=== PATIENT | female | born 1990 | race Caucasian/White ===

== ENCOUNTER 2016-11-23 19:39 | Emergency (ER) | payer OTHER ==
--- NOTE | 2016-11-23 19:49 | PDOC ---
History of Present Illness <Kwadwo Veliz - Last Filed: 11/23/16 21:12> - General History Source: Patient Exam Limitations: No Limitations - History of Present Illness Initial Comments: 11/23/16 20:28 This pt is a 26 yo F () LMP September 11 with no significant past medical history who presents with her complaining of vaginal bleeding. She states her symptoms began today. Vaginal bleeding is associated with lower abdominal crampy pain, which is intermittent, located through out the lower abdomen, worse on the left side, rated 5/10, no exacerbating or alleviating factors. Pain is not too bad now. She is currently NOT saturating any pads. She has not noted any clots or tissue. She has not had symptoms like this in the past. Pain is NOT associated with nausea and vomiting. She denies dysuria ROS: GENERAL/CONSTITUTIONAL: No: fever, chills, weakness, loss of appetite. HEAD, EYES, EARS, NOSE AND THROAT: No: change in vision, ear pain, discharge, sore throat, throat swelling. CARDIOVASCULAR: No: chest pain, lightheadedness, palpitations, syncope RESPIRATORY: No: cough, shortness of breath, wheezing, hemoptysis, stridor. GASTROINTESTINAL: (+) abdominal pain No: nausea, vomiting, diarrhea GENITOURINARY: (+) Vaginal bleeding No: dysuria, hematuria, frequency, urgency, flank pain. MUSCULOSKELETAL: No: back pain, neck pain, joint pain, muscle swelling or pain SKIN: No: lesions, pallor, rash or easy bruising. NEUROLOGIC: No: headache, vertigo, paresthesias, weakness ENDOCRINE: No: unexplained weight gain or loss HEMATOLOGIC/LYMPHATIC: No: anemia, easy bleeding, swelling nodes. PHYSICAL EXAM GENERAL: The patient is in no acute distress. HEAD: Normal with no signs of trauma. EYES: PERRLA, EOMI, sclera anicteric, conjunctiva clear. ENT: Ears normal, nares patent, oropharynx clear without exudates. Moist mucous membranes. NECK: Normal range of motion, supple without lymphadenopathy, JVD, or masses. LUNGS: Breath sounds equal, clear to auscultation bilaterally. No wheezes, and no crackles. HEART:Regular rate and rhythm, normal S1 and S2 without murmur, rub or gallop. ABDOMEN: (+) minimally tender to palpation, Soft, normoactive bowel sounds. No guarding, no rebound. EXTREMITIES: Normal range of motion, no edema. No clubbing or cyanosis. No erythema, or tenderness. NEUROLOGICAL: Cranial nerves II through XII grossly intact. Normal speech. No focal neurological deficits. MUSCULOSKELETAL: Back non-tender to palpation, no CVA tenderness SKIN: Warm, Dry, normal turgor, no rashes or lesions noted. 11/23/16 21:33 <Nay Marie - Last Filed: 11/24/16 20:17> - General Chief Complaint: Vaginal Bleeding Stated Complaint: 10 WEEKS PREG, VAGINAL BLEEDING Time Seen by Provider: 11/23/16 19:49 Past History <Kwadwo Veliz - Last Filed: 11/23/16 21:12> - Past Medical History Other medical history: denies - Immunization History Immunization Up to Date: Yes - Psycho/Social/Smoking Cessation Hx Suicidal Ideation: No Smoking History: Never smoked Have you smoked in the past 12 months: No Information on smoking cessation initiated: No Hx Alcohol Use: No Drug/Substance Use Hx: No <Nay Marie - Last Filed: 11/24/16 20:17> - Past Medical History Allergies/Adverse Reactions: Allergies Allergy/AdvReac Type Severity Reaction Status Date / Time No Known Allergies Allergy Verified 11/23/16 19:41 Home Medications: Ambulatory Orders NK [No Known Home Medication] 11/23/16 *Physical Exam - Vital Signs Last Vital Signs Temp Pulse Resp BP Pulse Ox 98.3 F 67 16 113/57 100 11/23/16 19:42 11/23/16 19:42 11/23/16 19:42 11/23/16 19:42 11/23/16 19:42 <wKadwo Veliz - Last Filed: 11/23/16 21:12> - Vital Signs Last Vital Signs Temp Pulse Resp BP Pulse Ox 98.3 F 67 16 113/57 100 11/23/16 19:42 11/23/16 19:42 11/23/16 19:42 11/23/16 19:42 11/23/16 19:42 <Nay Marie - Last Filed: 11/24/16 20:17> ED Treatment Course - LABORATORY CBC & Chemistry Diagram: 11/23/16 20:06 11/23/16 20:06 <Kwadwo Veliz - Last Filed: 11/23/16 21:12> - LABORATORY CBC & Chemistry Diagram: 11/23/16 20:06 11/23/16 20:06 <Nay Marie - Last Filed: 11/24/16 20:17> Medical Decision Making - Medical Decision Making 11/23/16 19:49 Vag bleeding early Will do labs, US 11/23/16 21:48 11/23/16 21:49 Laboratory Tests 11/23/16 11/23/16 11/23/16 20:06 20:06 20:11 WBC 9.9 Hgb 13.2 Hct 39.1 Plt Count 224 BUN 8 Creatinine 0.4 L Beta HCG, Quant 69532.7 Urine Blood 3+ H Urine Nitrite Negative Ur Leukocyte Esterase 1+ H Urine RBC 9 Urine WBC 2 11/23/16 22:28 Laboratory Tests 11/23/16 20:06 Blood Type A POSITIVE 11/24/16 00:03 U/S demonstrates gestational sac in lower uterine segment, no FHR visualized either due to technical difficulty vs. miscarriage Upon re assessment (+) increased bleeding noted (+) clot noted I have had a long conversation with this patient and her re: likelihood of miscarriage I have asked them to return to the Er in 2 days for repeat BHCG and US Return to the Er sooner for heavy vaginal bleeding, saturating 2 pads/hour x 2 hours Clinical Impression: Likely Miscarriage vs. Threatened AB <Nay Marie - Last Filed: 11/24/16 20:17> *DC/Admit/Observation/Transfer - Attestations Scribe Attestion: 11/23/16 19:51 Documentation prepared by Kwadwo Veliz, acting as medical lab director for Nay Marie MD. <Kwadwo Veliz - Last Filed: 11/23/16 21:12> - Discharge Dispostion Admit: No <Nay Marie - Last Filed: 11/24/16 20:17> Diagnosis at time of Disposition: Threatened - Discharge Dispostion Disposition: HOME Condition at time of disposition: Stable - Patient Instructions Printed Discharge Instructions: DI for Threatened Additional Instructions: Thank you for coming in to the ER today Please monitor yourself for heavy vaginal bleeding - saturating 2 pads/hour x 2 hours, lightheadedness, weakness Please follow up with your director of sales marketing as already scheduled
[2016-11-23 19:56] VITALS: PULSE 67; BMI 27.0
[2016-11-23 20:19] LABS: BASOPHIL 1.3 % (0-2.0); EOSINOPHIL 2.2 % (0-4.5); MCH 28.8 pg (25.7-33.7); MCHC 33.6 g/dl (32.0-36.0); MEAN CELL VOLUME 85.7 fl (80-96); MEAN PLT VOLUME 8.2 fl (7.5-11.1); NEUTROPHILS 63.1 % (42.8-82.8); PLATELET COUNT 224 K/MM3 (134-434); RDW 12.7 % (11.6-15.6); WHITE BLOOD COUNT 9.9 K/mm3 (4.0-10.0)
[2016-11-23 20:22] LABS: URINE APPEARANCE CLEAR; URINE BILIRUBIN NEGATIVE (NEGATIVE); URINE COLOR COLORLESS; URINE GLUCOSE (UA) NEGATIVE (NEGATIVE); URINE KETONE NEGATIVE (NEGATIVE); URINE NITRITE NEGATIVE (NEGATIVE); URINE PROTEIN NEGATIVE (NEGATIVE); URINE UROBILINOGEN NEGATIVE mg/dL (0.2-1.0)
[2016-11-23 20:33] LABS: URINE BLOOD 3+ (NEGATIVE); URINE LEUK ESTERASE 1+ (NEGATIVE)
[2016-11-23 20:36] LABS: ANION GAP 9 (8-16); CALCIUM 8.9 mg/dL (8.5-10.1); CO2 25 mmol/L (21-32); CREATININE 0.4 mg/dL (0.55-1.02); GLUCOSE,RANDOM 89 mg/dL (74-106); SGOT/AST 12 U/L (15-37); SGPT/ALT 19 U/L (12-78)
[2016-11-23 20:38] LABS: URINE BACTERIA RARE /hpf (NONE SEEN); URINE RBC 9 /hpf (0-3); URINE WBC 2 /hpf (3-5)
[2016-11-23 20:53] LABS: ALK PHOS 54 U/L (45-117); BILIRUBIN,TOTAL 0.4 mg/dL (0.2-1.0); TOT PROT 7.3 g/dl (6.4-8.2)
[2016-11-24 00:22] VITALS: BP 110/66; TEMP 98.2
--- NOTE | 2016-11-26 14:04 | PDOC ---
Patient Follow-up (Call Back) - Post ED Follow - Up Condition at time of discharge: Stable Disposition at time of original discharge: HOME Reason for Call Back: Abnwl. Microbiology (11/23/16 urine C & S + for > than 100 ,000 strep Bovis sensitive to PCN called pt left message [phone] to call back, called back pt to take amoxicillin 875mg bid for 7 days and to follow up with her MD for repeat urine testing at end treatment. pt. did not come back for repeat BHCG and US. Pt. told to come in today for repeat BHCG and ultrasound.)
== END 2016-11-24 00:22 | disposition home or self-care (01) ==
LOC: JER 19:39
DX: O26.891 Other specified pregnancy related conditions, first trimester (principal); O20.0 Threatened abortion; Z3A.10 10 weeks gestation of pregnancy
CPT/HCPCS: 36415; 76817-TC; 80053; 81003; 81015; 84702; 85025; 86850; 86900; 86901; 87086; 87186; 99283-25

== ENCOUNTER 2016-11-26 21:31 | Emergency (ER) | payer OTHER ==
[2016-11-26 21:38] VITALS: BP 96/52; PULSE 86; TEMP 98.1; BMI 27.3
--- NOTE | 2016-11-26 22:44 | PDOC ---
History of Present Illness - History of Present Illness Initial Comments: 11/26/16 22:44 Patient is a 26 year old female with no significant medical who is returning to the ED for follow up repeat beta hCG. Patient was seen in the ED three days ago on 11/23 when she presented at 6 weeks with vaginal bleeding and pelvic cramping at that time. The patient received an US that demonstrated products of conception in the lower uterine segment with no heart tone; it was read as an in progress. Her beta hCG was 11 thousand at the time. She was told to return to the ED today for repeat beta hCG. Today the patient complains of very mild pelvic cramping, light vaginal bleeding, and lower back pain; she states that her pain has improved since her last visit. Denies fever, chills, nausea, vomiting, diarrhea or urinary complaints. ; LNMP: 09/11/16 <Shalini Ballard - Last Filed: 11/26/16 22:44> <Nicole Storey - Last Filed: 11/27/16 00:16> - General Chief Complaint: Revisit, Lab Variance Stated Complaint: REVISIT Time Seen by Provider: 11/26/16 21:54 Past History <Shalini Ballard - Last Filed: 11/26/16 22:44> - Past Medical History Other medical history: denies - Immunization History Immunization Up to Date: Yes - Psycho/Social/Smoking Cessation Hx Suicidal Ideation: No Smoking History: Never smoked Have you smoked in the past 12 months: No Hx Alcohol Use: No Drug/Substance Use Hx: No <Nicole Storey - Last Filed: 11/27/16 00:16> - Past Medical History Allergies/Adverse Reactions: Allergies Allergy/AdvReac Type Severity Reaction Status Date / Time No Known Allergies Allergy Verified 11/26/16 21:37 Home Medications: Ambulatory Orders NK [No Known Home Medication] 11/26/16 Review of Systems - Review of Systems Comments:: 11/26/16 22:45 CONSTITUTIONAL: Absent: fever, no chills, no fatigue EYES: Absent: visual changes ENT: Absent: ear pain, no sore throat CARDIOVASCULAR: Absent: chest pain, no palpitations RESPIRATORY: Absent: cough, no SOB GI: Present: mild pelvic cramping Absent: no nausea, no vomiting, no constipation, no diarrhea GENITOURINARY: Present: light vaginal bleeding Absent: dysuria, no frequency, no hematuria MUSKULOSKELETAL: Present: mild lower back pain Absent: no arthralgia, no myalgia SKIN: Absent: rash NEURO: Absent: headache <Shalini Ballard - Last Filed: 11/26/16 22:44> *Physical Exam - Vital Signs Last Vital Signs Temp Pulse Resp BP Pulse Ox 98.1 F 86 18 96/52 99 11/26/16 21:35 11/26/16 21:35 11/26/16 21:35 11/26/16 21:35 11/26/16 21:35 - Physical Exam Comments: 11/26/16 22:47 GENERAL: Well-appearing, well-nourished. No apparent distress. HEENT: Normocephalic, atraumatic. PERRL, EOM intact. CARDIOVASCULAR: Normal S1, S2. Regular rate and rhythm. PULMONARY: Clear to auscultation bilaterally. ABDOMEN: Soft, non-distended, non-tender. EXTREMITIES: Normal ROM in all four extremities. No gross deformities. BACK: No CVA tenderness. SKIN: Warm, dry. No rash NEUROLOGICAL: No focal neurological deficits. <Shalini Ballard - Last Filed: 11/26/16 22:44> - Vital Signs Last Vital Signs Temp Pulse Resp BP Pulse Ox 98.1 F 86 18 96/52 99 11/26/16 21:35 11/26/16 21:35 11/26/16 21:35 11/26/16 21:35 11/26/16 21:35 <Nicole Storey - Last Filed: 11/27/16 00:16> Medical Decision Making - Medical Decision Making 11/26/16 23:55 26-year-old female returns for repeat beta-hCG. She reports being and having a transvaginal ultrasound on November 23 that showed an in progress. Her bhcg was 11,000. Past medical history is G1, P0. She denies any significant past medical history or surgeries. She denies any significant pain or cramping at this time and states she doesn' t need any Tylenol 11/27/16 00:15 bhcg fell to [id number] plan see material assistant this month,has an appt on 12/09/16 <Nicole Storey - Last Filed: 11/27/16 00:16> *DC/Admit/Observation/Transfer - Attestations Scribe Attestion: 11/26/16 22:48 Documentation prepared by Shalini Ballard, acting as rn medical surgical for Nicole Storey MD. <Shalini Ballard - Last Filed: 11/26/16 22:44> <Nicole Storey - Last Filed: 11/27/16 00:16> Diagnosis at time of Disposition: Miscarriage - Discharge Dispostion Disposition: HOME Condition at time of disposition: Stable - Patient Instructions Printed Discharge Instructions: DI for Miscarriage Additional Instructions: Please take your antibiotics for the UTI Keep your appointment with the material assistant this month
== END 2016-11-27 00:15 | disposition home or self-care (01) ==
LOC: JER 21:31
DX: O02.1 Missed abortion (principal); Z3A.10 10 weeks gestation of pregnancy
CPT/HCPCS: 36415; 84702; 99281-25

== ENCOUNTER 2020-05-21 20:20 | Emergency (ER) | payer OTHER | END 2020-05-21 21:57 | disposition home or self-care (01) | LOC: JERFT 20:20 | DX: G56.01 Carpal tunnel syndrome, right upper limb (principal) | CPT/HCPCS: 99281-25 ==

== ENCOUNTER 2022-02-10 13:14 | Emergency (ER) | payer OTHER ==
[2022-02-10 13:39] VITALS: BP 103/68; PULSE 78; RESP 19; TEMP 98.6; BMI 27.4
[2022-02-10 14:57] LABS: BASO % 0.8 % (0-2.0); EOS % 3.5 % (0-4.5); HEMATOCRIT 43.2 % (32.4-45.2); HEMOGLOBIN 14.6 GM/dL (10.7-15.3); LYMPH % 20.6 % (8-40); MCH 29.1 pg (25.7-33.7); MCHC 33.9 g/dl (32.0-36.0); MEAN CELL VOLUME 85.8 fl (80-96); MEAN PLT VOLUME 7.5 fl (7.5-11.1); MONO % 6.5 % (3.8-10.2); NEUT % 68.6 % (42.8-82.8); PLATELET COUNT 289 10^3/uL (134-434); RBC 5.04 M/mm3 (3.60-5.2); RDW 12.4 % (11.6-15.6); WHITE BLOOD COUNT 9.1 K/mm3 (4.0-10.0)
[2022-02-10 15:03] LABS: INR 0.99 (0.83-1.09); PROTHROMBIN TIME (PATIENT) 11.4 SEC (9.7-13.0)
[2022-02-10 17:17] LABS: CALCIUM 9.3 mg/dL (8.5-10.1)
[2022-02-10 17:18] LABS: BLOOD UREA NITROGEN 7.9 mg/dL (7-18)
[2022-02-10 17:20] LABS: CREATININE 0.5 mg/dL (0.55-1.3)
[2022-02-10 17:22] LABS: BILIRUBIN,TOTAL 0.5 mg/dL (0.2-1); TOT PROT 7.4 g/dl (6.4-8.2)
[2022-02-10] MEDS ORDERED: MISOPROSTOL 200 MCG TABLET PO ONE (17:28)
[2022-02-10 17:36] LABS: EPI CELLS 13 /uL (0-25.1); HYALINE CASTS 0 /uL (0-3.1); PH,URINE 5.5 (5.0-8.0); URINE APPEARANCE CLEAR; URINE BACTERIA 19 /uL (0-1359); URINE BILIRUBIN NEGATIVE (NEGATIVE); URINE COLOR YELLOW; URINE GLUCOSE (UA) NEGATIVE (NEGATIVE); URINE KETONE NEGATIVE (NEGATIVE); URINE LEUK ESTERASE TRACE (NEGATIVE); URINE NITRITE NEGATIVE (NEGATIVE); URINE PROTEIN NEGATIVE (NEGATIVE); URINE RBC 1689 /uL (0-23.9); URINE UROBILINOGEN 0.2 mg/dL (0.2-1.0); URINE WBC 16 /uL (0-25.8)
== END 2022-02-10 17:54 | disposition home or self-care (01) ==
LOC: JERFT 13:14 → JER 13:14 → JERFT 17:54
DX: O03.9 Complete or unspecified spontaneous abortion without complication (principal)
CPT/HCPCS: 36415; 76817-TC; 80053; 81003; 84702; 85025; 85610; 86850; 86900; 86901; 87086; 99284-25

== ENCOUNTER 2022-09-11 04:36 | Day surgery (SDC) | payer OTHER ==
[2022-09-10 12:54] VITALS: BMI 26.6
[2022-09-11 12:14] VITALS: BP 102/63; PULSE 61; RESP 19; TEMP 98.2
== END 2022-09-11 13:02 | disposition home or self-care (01) ==
LOC: JASU-ENDO 04:36
PROVIDERS: ATTEND Student in an Organized Health Care Education/Training Program
PROC: 0DB78ZX Excision of Stomach, Pylorus, Via Natural or Artificial Opening Endoscopic, Diagnostic (ICD-10-PCS; 2022-09-11)
PROC: 0DB68ZX Excision of Stomach, Via Natural or Artificial Opening Endoscopic, Diagnostic (ICD-10-PCS; 2022-09-11)
PROC: 0DB98ZX Excision of Duodenum, Via Natural or Artificial Opening Endoscopic, Diagnostic (ICD-10-PCS; principal; 2022-09-11 10:30)
DX: K20.90 Esophagitis, unspecified without bleeding (principal); K29.80 Duodenitis without bleeding; K29.50 Unspecified chronic gastritis without bleeding; B96.81 Helicobacter pylori [H. pylori] as the cause of diseases classified elsewhere
CPT/HCPCS: 81025; 88305-TC; 88342-TC

== ENCOUNTER 2022-10-06 12:52 | Emergency (ER) | payer OTHER ==
[2022-10-06 13:08] VITALS: BP 100/66; PULSE 71; RESP 18; TEMP 98.1; BMI 27.3
[2022-10-06] MEDS ORDERED: ACETAMINOPHEN 650 MG/20.3 ML ORAL SOLUTION (CUPS) PO ONE (13:30)
[2022-10-06] MEDS ORDERED: ACETAMINOPHEN 500 MG TABLET (FP) ONE (13:36)
== END 2022-10-06 15:52 | disposition home or self-care (01) ==
LOC: JER 12:52 → JERFT 12:52
DX: M54.50 Low back pain, unspecified (principal); M62.830 Muscle spasm of back
CPT/HCPCS: 72100-TC-FY; 99283-25